=== PATIENT | male | born 1945 | race Caucasian/White ===

== ENCOUNTER → 2018-05-03 | Outpatient (CLI) | payer BC ==
[~2018-05-03] MED LIST: AMLODIPINE10 MG PO; ASPIRIN 32325 MG/TAB PO; ASPIRIN E.C. 8181 MG PO; BP meds; CARDENE 20MG CA20 M1 PO; COZAAR50 MG PO; Cholesterol med; FLUOXETINE20 MG PO; HYDROCODONE/APAP; LOPRESSOR 225 MG/TAB PO; METOPROLOL25 MG PO; NIASPAN 500MG500 MG PO; NITROQUICK0.4 MG SL; NORVASC 10MG10 MG PO; PEPCID 20MG TAB20 MG PO; PLAVIX 75MG TAB75 MG PO; PROZAC20 MG PO; TRICOR200 MG PO; ZOCOR 40MG40 MG PO; ZOCOR20 MG PO
== END ==
LOC: COL.RAD 08:28
DX: M47.816 Spondylosis without myelopathy or radiculopathy, lumbar region (principal); M48.061 Spinal stenosis, lumbar region without neurogenic claudication; M99.73 Connective tissue and disc stenosis of intervertebral foramina of lumbar region